=== PATIENT | female | born 2005 | race African-American/Black ===

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

== ENCOUNTER 2025-03-22 07:37 | Emergency (ER) | payer OTHER, SELFPAY | END 2025-03-22 08:54 | disposition home or self-care (01) | LOC: CSHERS 07:37 | DX: J06.9 Acute upper respiratory infection, unspecified (principal) | CPT/HCPCS: 87426; 99283 ==